=== PATIENT | female | born 1960 | race Caucasian/White ===

== ENCOUNTER 2023-11-24 15:10 | Emergency (ER) | payer BC, MEDICAID ==
[~2023-11-24] VITALS: Ht 170.2 cm; Wt 72.7 kg
[2023-11-24 15:20] VITALS: BP 105/64; PULSE 81; RESP 17; TEMP 98.1; O2SAT 97
[2023-11-24] MEDS ORDERED: NAPR-1704 PO (16:18)
[2023-11-24] MEDS: KETOROLAC 30 MG/ML VIAL IM ONE (16:25)
== END 2023-11-24 16:48 | disposition home or self-care (01) ==
LOC: MED 15:10
DX: S93.504A Unspecified sprain of right lesser toe(s), initial encounter (principal); Z79.899 Other long term (current) drug therapy; W22.8XXA Striking against or struck by other objects, initial encounter; Y92.89 Other specified places as the place of occurrence of the external cause; Y93.89 Activity, other specified; Y99.8 Other external cause status
CPT/HCPCS: 73630; 96372; 99283; J1885